=== PATIENT | female | born 1995 | race Two or more races ===

== ENCOUNTER 2024-09-26 10:06 | Outpatient (AMB) | payer OTHER, SELFPAY ==
[2024-09-26 10:19] VITALS: BP 114/78; PULSE 68; RESP 16; TEMP 35.7; O2SAT 98; BMI 43.0
--- NOTE | 2024-09-26 10:19 | GYNCLNT_ITS ---
Vital Signs 09/26/24 10:19 Height 1.63 m Height Method Stated Weight 113.568 kg Weight Measurement Method Standing Scale BMI 43.0 BP 114/78 Blood Pressure Source Automatic Cuff Blood Pressure Location Left Upper Arm Position Sitting Respiration 16 Pulse 68 Pulse Source Monitor Temp 96.3 F L Temp Source Oral Pulse Oximetry (%) 98 Oxygen Delivery Method Room Air Allergies/Home Meds Allergies & Medications Allergies pineapple Allergy (Verified 09/26/24 10:21) Swelling of Lip/Tongue/Throat Intake Visit Data Collection New Patient or Established: New Patient not seen in past 3 years at [facility] (considered New) Reason for Visit:: Fertility Seen by Clinical Staff ONLY (RN/MA): No Mill Dresser Required: No Do You Feel Safe at Home: Yes Authorities Contacted: N/A PCP or OBGYN visit in last 3 months: No Hx Now: No Are you currently on any form of Control: No Last menstrual period: 09/26/24 Pain Present Currently: No Pain Scale Used: Price-Beaulieu/Numerical Pain scale:: 0 Smoking Status Smoking Status: Never smoker 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 1. Little interest or pleasure in doing things: not at all 2. Feeling down, depressed, or hopeless: not at all Total score: 0 PHQ-9 3. Trouble falling or staying asleep, or sleeping too much: Not at all 4. Feeling tired or having little energy: Not at all 5. Poor appetite or overeating: Not at all 6. Feeling bad about yourself - or that you are a failure or have let yourself or your family down: Not at all 7. Trouble concentrating on things, such as reading the newspaper or watching television: Not at all 8. Moving or speaking so slowly that other people could have noticed? - Or the opposite - being so fidgety or restless that you have been moving around a lot more than usual: not at all 9. Thoughts that you would be better off or of hurting yourself in some way: Not at all Total score: 0 If you checked off any problems, how difficult have these problems made it for you to do your work, take care of things at home, or get along with other people?: not difficult at all Source: Developed by Drs. Landry Day, Ludmila Ferreira, Rogers Castelan and colleagues, with an educational everett from [employer]. Depression screen completed yes Social History Living Situation History Marital Status: Lives With: Family Housing: House Tobacco History Smoking Status: Never smoker Alcohol History Alcohol Intake: Never Domestic Abuse History Do You Feel Safe at Home: Yes Past Medical History Past Medical History Have you ever been diagnosed with any of the following: Neurological Problems Seizures: Yes Cardiology Problems Congestive Heart Failure: No Respiratory Problems Chronic Obstructive Pulmonary Disease (COPD): No Stomache/Intestinal Problems Hepatitis: No Gall Bladder Disease: Yes (FOR THIS PROC) Genital/Urinary Problems Renal Disease: No Reproductive Problems Previous Pregnancies: Yes (X1) Endocrine Problems Diabetes Mellitus Type 1: No Diabetes Mellitus Type 2: No Other Problems Hospitalization: No Shingles: No Falls: Yes (10/29/2019 NO ER) Blood Transfusions: No Blood Transfusion Reaction: No Anesthesia Reactions: No Chemotherapy: No Radiation Therapy: No MRSA: No Chicken Pox: No Measles: No Mumps: No Cancer: No History of Present Illness HPI Narrative Patient is a female presenting with fertility concerns after attempting conception for the past year without success. She reports tracking ovulation, noting inconsistent patterns with ovulation occurring some months but not others, despite regular menstrual cycles. Patient uses an barbara to track cycles and ovulation, checking from day 12 to 16, with day 14 as a midpoint. Patient's partner has undergone testing and was found to have a low sperm count, though they were advised this should not significantly impact fertility. Patient has a history of a cyst on her left ovary, which has been under monitoring, with the last ultrasound performed over 6 months ago. Patient denies current use of fertility medications, including Clomid. Recent A1c, TSH, and other basic laboratory tests were reported as normal. Patient prefers [facility] pharmacy for her medication. Review of Systems Review of Systems Systems Reviewed: All systems reviewed, normal except as documented Exam General Limitations: no limitations General Appearance: alert, in no apparent distress, comfortable, cooperative, healthy appearing, well developed and well groomed Head Head exam: atraumatic, normocephalic and normal inspection Neck Neck exam: Present normal inspection, full ROM and trachea midline Chest Chest inspection: Present normal inspection and symmetric chest wall rise Abdominal Abdominal exam: Present soft and normal bowel sounds Extremities Extremities exam: Present normal inspection and full ROM Back Back exam: Present normal inspection and full ROM Psych Psychiatric exam: Present normal affect and normal mood Skin Skin exam: Present warm, dry, intact and normal color Assessment & Plan Diagnosis / Problem List (1) Abnormal uterine and vaginal bleeding, unspecified: Status: Acute Plan: AUB/ Anovulatory Cycles: - Patient attempting conception for one year without success. - Partner has low sperm count, potentially contributing to fertility challenges. - Patient reports alternating ovulation patterns despite regular menstrual cycles. - Uses barbara to track ovulation, counting 14 days from cycle start. - Previous workup includes normal A1c, TSH, and other unspecified labs. - No current fertility medications. - Initiate Clomid therapy: start on day 5 of menstrual cycle, continue for 5 days. - Monitor ovulation from day 12 to 16 of cycle. - Patient to track ovulation and document results. - Follow up after 2 cycles of Clomid. - Consider dose increase if no response after 2 months. - Prescription sent to [facility]. (2) Left ovarian cyst: Status: Acute Plan: Ovarian Cyst: - Patient reports known cyst on left ovary, last imaged over 6 months ago. - Current status and progression unknown. - Perform pelvic ultrasound today for reassessment of ovarian cyst. Additional Plan Follow Up: 2 Months Office Procedures OB Clinic LOC & Office Proc's Nursing/Assessment Patient Status: Initial/New Patient OB Clinic Nursing Assessment: BP Monitoring, Medication Reconciliation, Update PMH in EMR and Vital Signs OB Clinic Coordination of Care: Consent,records obtained, informed consent, Education Simp Pt/Fam, Lab and Imaging orders and Staff clarify orders New Patient Charge New Patient Point Assignment: [id number] New Patient Point Charge: CARPET MEASURER Level 3 ([id number])
== END 2024-09-26 10:39 | disposition home or self-care (01) ==
LOC: HODSOBC 10:06
PROVIDERS: PCP Obstetrics & Gynecology; Referring Provider Obstetrics & Gynecology; Supervising Provider Obstetrics & Gynecology; Visit Provider Obstetrics & Gynecology
DX: N93.9 Abnormal uterine and vaginal bleeding, unspecified (principal); N83.202 Unspecified ovarian cyst, left side
CPT/HCPCS: 99203; G0463

== ENCOUNTER → 2024-09-26 | Outpatient (CLI) | payer OTHER, SELFPAY ==
--- NOTE | 2024-09-26 11:09 | XR_ITS ---
Examination: Pelvic ultrasound, transabdominal, complete Technique: Transabdominal ultrasound of the pelvis performed using grayscale imaging Date and time of exam: September 26, 2024 1127 hours INDICATIONS: Left lower abdominal pain beginning one week ago FINDINGS: Uterus 11.4 cm endometrial stripe 0.7 cm Right ovary 3.2 cm arterial flow 11 mm follicular cyst Left ovary 3.3 cm arterial flow 16mm 17 mm cyst IMPRESSION: No uterine mass or intrauterine gestation Small bilateral ovarian follicular cysts
== END | disposition home or self-care (01) ==
LOC: CDIM 10:57
PROVIDERS: PCP Internal Medicine; Referring Provider Obstetrics & Gynecology; Visit Provider Obstetrics & Gynecology
DX: N83.02 Follicular cyst of left ovary (principal); N83.01 Follicular cyst of right ovary
CPT/HCPCS: 76856

== ENCOUNTER 2024-11-28 10:08 | Outpatient (AMB) | payer OTHER, SELFPAY ==
[2024-11-28 10:33] VITALS: BP 139/81; PULSE 75; RESP 16; TEMP 36.9; O2SAT 97; BMI 43.7
--- NOTE | 2024-11-28 10:33 | GYNCLNT_ITS ---
Vital Signs 11/28/24 10:33 Height 1.63 m Height Method Stated Weight 116.29 kg Weight Measurement Method Standing Scale BMI 43.7 BP 139/81 H Blood Pressure Source Automatic Cuff Blood Pressure Location Right Upper Arm Position Sitting Respiration 16 Pulse 75 Pulse Source Monitor Temp 98.4 F Temp Source Oral Pulse Oximetry (%) 97 Oxygen Delivery Method Room Air Allergies/Home Meds Allergies & Medications Allergies pineapple Allergy (Verified 11/28/24 10:34) Swelling of Lip/Tongue/Throat Medication Reconciliation medroxyprogesterone 10 mg tablet (Provera) 10 mg PO QDAY 21 days #21 tabs 11/28/24 [Rx] Intake Visit Data Collection New Patient or Established: Established Patient (seen at [facility] within 3 years) Reason for Visit:: ABNORMAL BLEEDING FOLLOW UP, LAB RESULT Seen by Clinical Staff ONLY (RN/MA): No Bar Assistant Required: No Do You Feel Safe at Home: Yes Authorities Contacted: N/A PCP or OBGYN visit in last 3 months: Yes Hx Now: No Last menstrual period: 11/21/24 Pain Present Currently: No Pain Scale Used: Price-Beaulieu/Numerical Pain scale:: 0 Smoking Status Smoking Status: Never smoker 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 Menstrual regularity: regular Flow: normal Monthly: Yes How many days does period last: 7 Age at menarche: 13 Currently sexually active: Yes 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 1. Little interest or pleasure in doing things: not at all 2. Feeling down, depressed, or hopeless: not at all Total score: 0 PHQ-9 3. Trouble falling or staying asleep, or sleeping too much: Not at all 4. Feeling tired or having little energy: Not at all 5. Poor appetite or overeating: Not at all 6. Feeling bad about yourself - or that you are a failure or have let yourself or your family down: Not at all 7. Trouble concentrating on things, such as reading the newspaper or watching television: Not at all 8. Moving or speaking so slowly that other people could have noticed? - Or the opposite - being so fidgety or restless that you have been moving around a lot more than usual: not at all 9. Thoughts that you would be better off or of hurting yourself in some way: Not at all Total score: 0 Source: Developed by Drs. Landry Day, Ludmila Ferreira, Rogers Castelan and colleagues, with an educational everett from [employer]. Depression screen completed yes Social History Living Situation History Lives With: Family Housing: House Tobacco History Smoking Status: Never smoker Alcohol History Alcohol Intake: Never Domestic Abuse History Do You Feel Safe at Home: Yes History of Present Illness HPI Narrative Patient reports experiencing irregular menstrual cycles since her last visit in September. She states that she had two periods in October, with one period lasting 12 days. She describes having a bleeding period and then an actual period, followed by a two-week break, and then another full period. This unusual pattern prevented her from starting the prescribed Clomid treatment as she was unsure how to time it correctly. The patient notes that this irregular cycle is atypical for her, stating, it was very weird because that's never happened to me before. She also mentions that she has not had a period since then. She is a 29-year-old female presenting for follow-up of ovulation treatment using Clomid. She has been trying to conceive for one year without success, and her partner has a low sperm count being treated separately by a urologist. Due to menstrual irregularities, the patient did not initiate the Clomid therapy as previously instructed. She expresses confusion about how to time the medication given her unpredictable cycles. The patient has a history of anovulatory cycles. She has no previous pregnancies (G0 T0 L0) and is not currently . Diagnostic Test Results and Labs: - Pelvic Ultrasound (09/26/2024): - Uterus: 11.4 cm (slightly enlarged but noted as normal) - Right ovary: 3.2 cm, arterial flow present, 11 mm follicular cyst - Left ovary: 3.3 cm, two cysts measuring 6 mm and 17 mm Review of Systems Review of Systems Systems Reviewed: All systems reviewed, normal except as documented Exam General General Appearance: alert, in no apparent distress and healthy appearing Head Head exam: atraumatic Neck Neck exam: Present normal inspection and trachea midline Chest Chest inspection: Present normal inspection and symmetric chest wall rise External exam: Present normal external exam; Absent tenderness Neuro Neurological exam: Present oriented X3 Psych Psychiatric exam: Present normal affect and normal mood Office Procedures OB Clinic LOC & Office Proc's Nursing/Assessment Patient Status: Established Patient OB Clinic Nursing Assessment: Medication Reconciliation, Update PMH in EMR and Vital Signs OB Clinic Coordination of Care: Complex Care and Chronic Disease 1-5, Consent,records obtained, informed consent, Education Simp Pt/Fam, Lab and Imagi ng orders, Results/Orders obtained and Staff clarify orders Established Patient Charge Established Patient Point Assignment: [phone] Established Patient Point Charge: EP Level 3 (80-115) Assessment & Plan Diagnosis / Problem List (1) Abnormal uterine and vaginal bleeding, unspecified: Status: Acute Plan Anovulatory Cycles Plan: - Prescribe Provera for 21 days to reset menstrual cycle. - Instruct patient not to expect menstruation during 21-day course. - Anticipate withdrawal bleeding upon discontinuation of Provera. - Start tracking cycle and initiate Clomid therapy once withdrawal bleeding begins. - Complete two cycles of Clomid therapy. - Follow up after two Clomid cycles or as needed. Infertility Plan: - Initiate Clomid therapy after menstrual cycle regulation with Provera. - Monitor ovulation from day 12 to day 16 of cycle once regular cycles are established. - Continue partner's treatment with urologist for low sperm count.
== END 2024-11-28 10:41 | disposition home or self-care (01) ==
LOC: HODSOBC 10:08
PROVIDERS: PCP Obstetrics & Gynecology; Referring Provider Obstetrics & Gynecology; Supervising Provider Obstetrics & Gynecology; Visit Provider Obstetrics & Gynecology
DX: N93.9 Abnormal uterine and vaginal bleeding, unspecified (principal)
CPT/HCPCS: 99213; G0463